=== PATIENT | male | born 1975 | race Hispanic/Latino ===

== ENCOUNTER 2021-04-25 10:26 | Emergency (ER) | payer SELFPAY ==
[2021-04-25 10:32] VITALS: BP 138/97; PULSE 108; RESP 18; TEMP 37.6; O2SAT 100
--- NOTE | 2021-04-25 10:32 | ED.GENADULT ---
HPI - General Adult General Chief complaint: Fever Stated complaint: fever, headache, cough, sore throat Time Seen by Provider: 04/25/21 10:31 History of Present Illness HPI narrative: Patient is a 45-year-old male otherwise healthy who comes to the ED today complaining of a frontal headache, sinus congestion, mild cough, chills, subjective fevers, sore throat, generalized body aches for the last 3 days. Denies any chest pain, shortness of breath, nausea, vomiting. Has not been taking any medicines for any symptoms at home. Has not had COVID-19 vaccine. Related Data Allergies Allergy/AdvReac Type Severity Reaction Status Date / Time No Known Allergies Allergy Verified 04/25/21 10:34 Review of Systems Constitutional: Constitutional: Reports as per HPI, Reports chills, Reports fever(s), Denies night sweats and Denies weakness ENT: Reports sore throat Comments: See HPI for sore throat Cardiovascular: Cardiovascular: Denies chest pain, Denies edema, Denies leg edema, Denies dyspnea and Denies orthopnea Respiratory: Respiratory: Denies cough and Denies dyspnea Gastrointestinal: Gastrointestinal: Denies abdominal pain, Denies constipation, Denies diarrhea, Denies nausea and Denies vomiting Musculoskeletal: Musculoskeletal: Denies abnormal gait, Denies back pain, Denies numbness and Denies tingling Neurologic: Denies Abnormal speech present, Denies abnormal gait, Reports headache(s), Denies numbness, Denies tingling and Denies weakness Psychiatric: Psychiatric: Denies homicidal ideation and Denies suicidal ideation Exam Narrative: Pleasant, no distress Const: General: cooperative, healthy appearing, comfortable, no acute distress, well developed, alert, awake and Physically active Orientation/consciousness: patient oriented x3 HENMT: Head: normal to inspection, normocephalic and atraumatic Ears: external ears normal General nose exam: Normal external nose present Throat: uvula midline Other: 2+ tonsillar edema bilaterally with no exudates. No abscess Eyes: Pupils: Equal, round and reactive pupils present EOM: EOMs intact bilaterally Neck: Neck: normal visual inspection, no lymphadenopathy and no meningeal signs Other: Full range of motion, supple, nontender Chest: Chest palpation & inspection: normal inspection of the chest and no tenderness Resp: Effort & Inspection: normal respiratory effort and able to speak in complete sentences Auscultation: clear to auscultation bilaterally Cardio: Rate: regular rate Rhythm: regular rhythm GI: Inspection: normal to inspection GI Palp: No abdominal tenderness : General: Yes no CVA tenderness Back/Spine/Pelvis: Back: no CVA tenderness Skin: General skin exam: normal color and no rashes or lesions noted Lesions: no lesions Neuro: General: patient oriented x3, no focal motor deficits and CN's II-XI intact bilaterally Cranial nerves: Yes Equal, round and reactive pupils present Speech: No Abnormal speech present Extrem: General: normal to inspection and full ROM Psych: Appearance: grossly normal and well kempt Mental Status: mental status grossly normal Speech and movement: Normal speech and movement present Affect: normal affect Thought process: Normal thought process present Course Course Emergency Course: 12:00 PM Discussed with patient that his symptoms appear to be viral in nature during the COVID-19 pandemic. Discussed supportive care. Would like to receive some IV fluids and Tylenol and Toradol while in the ED for his generalized body aches. Will swab for COVID-19 and will also swab for strep throat. 1:42 PM Patient feeling better after the IV fluids and Toradol and Tylenol. Tachycardia has resolved. Agreeable for plan for discharge. Discussed supportive care of his viral syndrome and strict return to ED precautions with any new or worsening symptoms, especially shortness of breath. Vital Signs Vital signs: Vital Signs Temperature 37.6 C H 08/05
[2021-04-25] MEDS: KETOROLAC 30 MG/ML VIAL (*BKC) IV PUSH (12:17)
[2021-04-25] MEDS: ACETAMINOPHEN 500 MG TABLET 1000 MG PO (12:17)
[2021-04-25] MEDS: LACTATED RINGERS 1,000 ML 999 ML IV CONT (12:17)
[2021-04-25 12:23] VITALS: RESP 16
[2021-04-25 14:03] VITALS: BP 122/77; PULSE 88; RESP 16; TEMP 37.7; O2SAT 100
[2021-04-25 18:48] LABS: SARS-CoV-2 RNA PCR Negative
== END 2021-04-25 14:04 | disposition home or self-care (01) ==
PROVIDERS: Physician Assistant Medical; Emergency Provider Emergency Medicine
DX: B34.9 Viral infection, unspecified (principal); Z20.822 Contact with and (suspected) exposure to COVID-19
CPT/HCPCS: 87081; 87880; 96361; 96374; 99284; A9270; C9803; J1885; J7120; U0003; U0005